=== PATIENT | female | born 1975 | race Caucasian/White ===

== ENCOUNTER 2019-12-03 17:54 | Inpatient (IN) | payer OTHER ==
[~2019-12-03] VITALS: Ht 167.6 cm; Wt 102.1 kg
[2019-12-03] MEDS ORDERED: GLIMEPIRIDE2 MG (18:27)
[2019-12-03] MEDS ORDERED: SYNTHROID100 MCG (18:27)
[2019-12-03] MEDS ORDERED: TAMOXIFEN CITRA20 MG (18:28)
[2019-12-03] MEDS ORDERED: ASPIR 8181 MG (18:28)
[2019-12-03] MEDS ORDERED: SIMVASTATIN5 MG (18:28)
[2019-12-03] MEDS ORDERED: ZESTRIL40 M1 (18:29)
== END 2019-12-13 16:47 | disposition home or self-care (01) | DRG 338 ==
LOC: ER 17:54 → EDBD 20:51 → SEC-K 20:51 → MEDI 20:51
PROVIDERS: Obstetrics & Gynecology Gynecologic Oncology; ADMIT Internal Medicine; ATTEND Internal Medicine
PROC: BB24ZZZ Computerized Tomography (CT Scan) of Bilateral Lungs (ICD-10-PCS; 2019-12-03)
PROC: BW21Y0Z Computerized Tomography (CT Scan) of Abdomen and Pelvis using Other Contrast, Unenhanced and Enhanced (ICD-10-PCS; 2019-12-03)
PROC: 4A033R1 Measurement of Arterial Saturation, Peripheral, Percutaneous Approach (ICD-10-PCS; 2019-12-03)
PROC: 0W9930Z Drainage of Right Pleural Cavity with Drainage Device, Percutaneous Approach (ICD-10-PCS; 2019-12-07)
PROC: 0UT90ZZ Resection of Uterus, Open Approach (ICD-10-PCS; 2019-12-09)
PROC: 0UT70ZZ Resection of Bilateral Fallopian Tubes, Open Approach (ICD-10-PCS; 2019-12-09)
PROC: 0UT20ZZ Resection of Bilateral Ovaries, Open Approach (ICD-10-PCS; 2019-12-09)
PROC: 0DTU0ZZ Resection of Omentum, Open Approach (ICD-10-PCS; 2019-12-09)
PROC: 0DTJ0ZZ Resection of Appendix, Open Approach (ICD-10-PCS; principal; 2019-12-09 09:15)
DX: C18.1 Malignant neoplasm of appendix (principal); J18.0 Bronchopneumonia, unspecified organism; R18.8 Other ascites; J90 Pleural effusion, not elsewhere classified; N39.0 Urinary tract infection, site not specified; D25.1 Intramural leiomyoma of uterus; D47.3 Essential (hemorrhagic) thrombocythemia; E03.8 Other specified hypothyroidism; D50.8 Other iron deficiency anemias; R50.9 Fever, unspecified; I10 Essential (primary) hypertension; K66.8 Other specified disorders of peritoneum; E11.9 Type 2 diabetes mellitus without complications; N72 Inflammatory disease of cervix uteri; D25.2 Subserosal leiomyoma of uterus; R31.0 Gross hematuria; Z79.4 Long term (current) use of insulin; Z03.818 Encounter for observation for suspected exposure to other biological agents ruled out